=== PATIENT | female | born 1990 | race Caucasian/White ===

== ENCOUNTER → 2024-04-18 12:47 | Outpatient (REF) | payer BC, SELFPAY | LOC: HWRAD 12:47 | PROVIDERS: ATTENDING PHYSICIAN Physician Assistant Medical | DX: R00.2 Palpitations (principal); N92.6 Irregular menstruation, unspecified; R10.32 Left lower quadrant pain; R63.5 Abnormal weight gain | CPT/HCPCS: 74177; Q9967 ==

== ENCOUNTER → 2024-06-06 17:27 | Outpatient (REF) | payer BC, SELFPAY | LOC: MRI 3T 17:27 | PROVIDERS: ATTENDING PHYSICIAN Physician Assistant Medical | DX: E27.9 Disorder of adrenal gland, unspecified (principal) | CPT/HCPCS: 74183; A9575 ==

== ENCOUNTER 2024-08-06 16:53 | Emergency (ER) | payer BC, SELFPAY ==
[2024-08-06] MEDS: NSS 1000 IV ×2 (16:58→19:01)
--- NOTE | 2024-08-06 17:04 | ED.GENMED ---
History of Present Illness
General
Chief Complaint: Heart Rate Problem
Source: patient
Exam Limitations: none
Time Seen by Provider: 08/06/24 16:54
History of Present Illness
History of Present Illness:
See MDM
Past History
Past History
ED Past Medical History: Asthma
ED Past Surgical History: None
Social History
Tobacco: Non-smoker
Alcohol: None
Drug: None
Personal: Single
Living: with family
Employment: Employed
Phy Exam
Physical Exam
Physical Exam:
See MDM
Course
Orders/Labs/Results
Orders:
Orders
08/06/24 16:57
EKG [Electrocardiogram (*1)] Urgent
Reason for Study: Bradycardia / Tachycardia
08/06/24 16:58
EKG- Treatment ONCE
0.9% Sodium Chloride 1000 ml [Nss] 1,000 ml IV BOLUS
08/06/24 17:04
0.9% Sodium Chloride 1000 ml [Nss] 1,000 ml IV BOLUS
08/06/24 17:07
CMP [Comprehensive Metabolic Panel] Urgent
Complete Blood Count/With Diff Urgent
HCG, Serum Qualitative Screen Urgent
Comment: ADD ON
TSH Reflex To Free T4 Urgent
08/06/24 18:04
Test Result ONCE
08/06/24 18:34
Add On - Microbiology Stat
Tests Added?: beta qual serum
08/06/24 18:56
0.9% Sodium Chloride 1000 ml [Nss] 1,000 ml IV BOLUS
Abnormal Lab Results
08/06/24
17:07
MPV 10.6 H fL
(7.4-10.4)
Absolute Neuts (auto) 6.7 H 10^3/uL
(1.4-6.5)
Chloride 108 H mmol/L
(98-107)
Carbon Dioxide 21 L mmol/L
(22-30)
Creatinine 1.4 H mg/dL
(0.6-1.0)
08/06/24 17:07
08/06/24 17:07
Vital Signs
Initial and Last Documented VS:
Initial Vital Signs
Temp Pulse Resp BP Pulse Ox
97.9 F 91 20 109/87 98
08/06/24 17:08 08/06/24 17:08 08/06/24 17:08 08/06/24 17:08 08/06/24 17:08
Last Documented Vital Signs
Temp Pulse Resp BP Pulse Ox
97.9 F 70 13 94/59 98
08/06/24 17:08 08/06/24 20:05 08/06/24 20:05 08/06/24 20:05 08/06/24 17:08
MDM/Problems Addressed
Differential Diagnosis Includes:
HPI and MDM Narrative:
34-year-old female presenting for evaluation of SVT. She was working and felt her heart rate go to the 200s. She did vagal maneuvers and it did break on its own. She is currently being worked up for adrenal mass. Patient has a history of
hypothyroidism but she states she does not take her Synthroid because her levels have been normal. She also has a history of anemia. Patient presents emergency department because her tachycardia was lasting longer than normal and she still feels
weak and fatigued.
Physical exam
General: Well appearing and non-toxic
HEENT: protecting airway. Dry mucous membranes
Neck: appears supple
CV: No evidence of cyanosis. Regular rate and rhythm
Resp: No accessory muscle use
Abd: Non-distended
Extremities: No deformities. No leg edema or tenderness
Neuro: alert
Psych: Normal affect
Skin: Intact
Problems Addressed including Acute and Chronic Conditions affecting care:
1. SVT
Acuity: acute
Prognosis: stable
Details: Vagal maneuvers worked prior to arrival. Will obtain basic labs and EKG
Updates
Blood work shows normal hemoglobin and TSH. Creatinine is elevated. This correlates to her symptoms. She has been working all day today and has not urinated today. Will continue IV fluids. Patient is feeling better we discussed continuing the
workup for her adrenal mass
Differential Diagnosis (but not limited to): Hypothyroidism, SVT, pheochromocytoma
Testing considered: Troponin
Drug therapy (if applicable): OTC meds, please see d/c instruction regarding Rx drugs
Amount and/or Complexity of Data Reviewed
Clinical info obtained from: Patient
External data reviewed: N/A
Labs I independently reviewed (but not limited to): Elevated creatinine
Radiology: N/A
Pulse Ox: not hypoxic
EKG independently reviewed: Sinus rhythm, normal axis, no STEMI
Manager Domestic: Sinus rhythm
Critical Care: N/A
Risk of Complication:
Social Determinants of health: Good social support
Discussed with other providers: N/A
Escalation of Care includes Admit/Obs: After being observed in the Emergency Department, pt stable for discharge.
Occasional wrong word or 'sound a like' substitutions may have occurred due to the inherent limitations of voice recognition software. Read the chart carefully and recognize, using context, where substitutions have occurred.
*Critical Care Note
Total Time (30-74mins, 75-104mins- exclusive of procedures): Not Applicable
ED Attending Note
-
Portions of this chart may have been created with voice recognition software.� Occasional wrong word or��sound alike� substitutions may have occurred due to the inherent limitations of voice recognition software.
Discharge Plan
Departure
Patient Disposition: Home (Routine Discharge)
Date of Disposition: 08/06/24
Time of Disposition: 20:11
Patient with high blood pressure during this ER visit?: No
Discharge Problem:
Paroxysmal SVT (supraventricular tachycardia)
Prescriptions:
No Action
multivitamin 1 EACH tablet
1 tab PO DAILY
vitamin B complex 1 EACH capsule
1 tab PO DAILY
albuterol sulfate 1 PUFF HFA aerosol inhaler
2 puff inhalation R Q4HPRN PRN (Reason: Wheezing)
ondansetron 4 MG tablet,disintegrating
4 mg PO TIDPRN PRN (Reason: NAUSEA) Qty: 10 1RF
tramadol 50 MG tablet
50 mg PO Q8HPRN PRN (Reason: pain) Qty: 15 0RF
Referrals:
Vinita Marcelo PA-C [Family Provider] -
Activity Restrictions/Additional Instructions:
Please continue the workup for this adrenal mass.
Return for worsening symptoms.
Interventions
Interventions:
*Risk Screen - Suicide Last Done: 08/06/24 17:08
*General Assessment Last Done: 08/06/24 17:08
*Neglect/Abuse Screening Last Done: 08/06/24 17:08
*ED COVID-19 Vaccine History Last Done: 08/06/24 17:08
ED- Cardiac Assessment Last Done: 08/06/24 17:34
ED- Pulmonary Assessment Last Done: 08/06/24 17:34
Discharge Date and Time
Print Language: FILIPINO
[2024-08-06 17:08] VITALS: BP 109/87
[2024-08-06 17:23] LABS: % Basophils 0.6 % (0-2); % Eosinophils 0.9 % (0-6); % Immature Granulocytes 0.4 % (0-0.5); % Monocytes 5.5 % (1.7-9.3); % Neutrophils 71.6 % (42.2-75.2); Absolute Basophils 0.1 10^3/uL (0-0.2); Absolute Eosinophils 0.1 10^3/uL (0-0.7); Absolute Monocytes 0.5 10^3/uL (0.1-0.6); Absolute Neutrophils 6.7 10^3/uL (1.4-6.5); Hematocrit 37.4 % (37.0-47.0); Hemoglobin 13.1 g/dL (12.0-16.0); Mean Corpuscular Hgb 29.4 pg (27.0-31.0); Mean Corpuscular Volume 83.9 fL (81.0-99.0); Mean Platelet Volume 10.6 fL (7.4-10.4); Nucleated Red Blood Cells % 0 %; Platelet Count 263 10^3/uL (130-400); Red Blood Cell Count 4.46 10^6/uL (4.20-5.40); White Blood Cell Count 9.3 10^3/uL (4.8-10.8)
[2024-08-06 17:34] LABS: ALT (SGPT) 18 U/L (0-35); AST (SGOT) 22 U/L (14-36); Albumin 4.4 g/dl (3.5-5.0); Alkaline Phosphatase 64 U/L (38-126); Blood Urea Nitrogen 14 mg/dl (7-17); Calcium 9.8 mg/dl (8.4-10.2); Carbon Dioxide 21 mmol/L (22-30); Chloride 108 mmol/L (98-107); Glucose 83 mg/dl (70-99); Potassium 4.1 mmol/L (3.5-5.1); Sodium 141 mmol/L (135-145); Total Bilirubin 0.8 mg/dl (0.2-1.3); Total Protein 6.9 g/dl (6.3-8.2); eGFR 50.32
[2024-08-06 18:00] VITALS: BP 97/69
[2024-08-06 18:06] LABS: TSH Reflex To Free T4 2.75 uIU/ml (0.47-4.68)
[2024-08-06 19:03] VITALS: BP 101/71
[2024-08-06 19:25] LABS: HCG, Serum Qualitative Screen Negative
[2024-08-06 20:05] VITALS: BP 94/59
== END 2024-08-06 20:22 | disposition home or self-care (01) ==
LOC: EMR 16:53
PROVIDERS: EMERGENCY PHYSICIAN Student in an Organized Health Care Education/Training Program; FAMILY PHYSICIAN Physician Assistant Medical
DX: I47.19 Other supraventricular tachycardia (principal); J45.909 Unspecified asthma, uncomplicated
CPT/HCPCS: 96360; 96361; 99284; 80053; 84443; 84703; 85025; 93005

== ENCOUNTER → 2025-05-03 12:30 | Outpatient (REF) | payer BC, SELFPAY | LOC: HWRAD 12:30 | PROVIDERS: ATTENDING PHYSICIAN Nurse Practitioner Family; FAMILY PHYSICIAN Physician Assistant Medical | DX: D35.02 Benign neoplasm of left adrenal gland (principal) | CPT/HCPCS: 74150 ==